=== PATIENT | male | born 1995 | race Caucasian/White ===

== ENCOUNTER 2020-06-14 09:51 | Emergency (ER) | payer BC, OTHER ==
[2020-06-14 09:56] VITALS: TEMP 97.6
--- NOTE | 2020-06-14 11:01 | XR ---
EXAMINATION TYPE: XR chest 2V DATE OF EXAM: 06/14/2020 COMPARISON: 11/25/2014 HISTORY: 25-year-old male with chest pain for months. TECHNIQUE: PA and lateral views FINDINGS: The cardiomediastinal silhouette, aorta, and pulmonary vasculature are within normal limits. library monitor located overlying the mid sternal region. Lungs and pleural spaces are clear. IMPRESSION: No acute cardiopulmonary process.
--- NOTE | 2020-06-14 11:07 | ED ---
Chest Pain HPI - General Chief Complaint: Chest Pain Stated Complaint: chest pain/dizziness Time Seen by Provider: 06/14/20 10:00 Source: patient Mode of arrival: ambulatory Limitations: no limitations - History of Present Illness Initial Comments: 25-year-old male presenting today for chief complaint of chest discomfort on and off 3 months. Patient states that he has had chest discomfort on and off he states is very sporadic and no particular pattern he denies chest pain with exertion he denies chest pressure jaw pain and arm pain nausea vomiting. Patient denies a family history of premature coronary artery syndrome-mother's bedside who confirms this. Patient denies diabetes high blood pressure. He states that today he had 3 episodes of that he states is very intermittent and lasting for seconds at a time he states he had a heart monitor placed the other day by his primary care provider since he did press the button in order to record the event. She denies any leg swelling hemoptysis, pain with deep inspiration history of DVT or pulmonary embolism he denies cancer recent surgeries or immobilization he denies any recent travel. Patient denies current chest pain, denies ripping tearing back pain he denies any shortness of breath. There is no history of connective tissue disease history or To tissue disease personally. Patient denies any additional complaints upon arrival he appears well nontoxic no acute distress EKG was faxed over which looked like normal sinus with a sinus arrythmia. Reviewed with Dr. Villavicencio - Related Data Previous Rx's Medication Instructions Recorded Ibuprofen [Motrin] 600 mg PO Q6HR PRN #40 day 11/25/14 Allergies Allergy/AdvReac Type Severity Reaction Status Date / Time No Known Allergies Allergy Verified 06/14/20 09:56 Review of Systems ROS Statement: Those systems with pertinent positive or pertinent negative responses have been documented in the HPI. ROS Other: All systems not noted in ROS Statement are negative. EKG Findings - EKG Comments: EKG Findings:: Ventricular rate 80 bpm, FL interval 156 ms, QRS duration 104 ms, QT/QTC 358/433 ms. This is normal sinus there is no ST elevation or depression appreciated. Past Medical History Past Medical History: No Reported History History of Any Multi-Drug Resistant Organisms: None Reported Additional Past Surgical History / Comment(s): cyst removal on chest x 2 years ago Past Psychological History: No Psychological Hx Reported Smoking Status: Never smoker Past Alcohol Use History: None Reported Past Drug Use History: None Reported General Exam - General Exam Comments Initial Comments: General: The patient is awake and alert, in no distress Eye: +3 mm pupils are equal, round and reactive to light, extra-ocular movements are intact. No nystagmus. There is normal conjunctiva bilaterally. No signs of icterus. Ears, nose, mouth and throat: There are moist mucous membranes and no oral lesions. Neck: The neck is supple, there is no tenderness or JVD. Cardiovascular: There is a regular rate and rhythm. No murmur, rub or gallop is appreciated. Respiratory: Lungs are clear to auscultation, respirations are non-labored, breath sounds are equal. No wheezes, stridor, rales, or rhonchi. Gastrointestinal: Soft, non-distended, non-tender abdomen without masses or organomegaly noted. There is no rebound or guarding present. Musculoskeletal: Normal ROM, no tenderness. Strength 5/5. Sensation intact. Radial and DP pulses equal bilaterally 2+. Neurological: A&O x 3. CN II-XII intact grossly, There are no obvious motor or sensory deficits. Coordination appears grossly intact. Speech is normal. Skin: Skin is warm and dry and no rashes or lesions are noted. No LE edema or calf pain. Psychiatric: Cooperative, appropriate mood & affect, normal judgment. Limitations: no limitations Course Vital Signs 06/14/20 09:53 Temperature 97.6 F Pulse Rate 86 Respiratory 20 Rate Blood Pressure 137/90 O2 Sat by Pulse 100 Oximetry Chest Pain MDM - MDM Well appearing 25yo male presenting for intermittent hest pain, sharp in nature x [address] EKG no acute changes. No murmur. no extremity findings. PERC (-). Patient hx provided doesnt appears cardiac in nature/typical chest pain. Discussd with attending at this time given CXR clear. no extremity findings. EKG WNL. no murmur that patient is stable for discharge with pcp f/u. reutrn for more persistent/increase fequency of symptoms/worsening pain, Disposition Clinical Impression: Chest pain Disposition: HOME SELF-CARE Condition: Good Instructions (If sedation given, give patient instructions): Chest Pain (ED) Additional Instructions: Please use medication as discussed. Please follow-up with family doctor in the next 2 days. Please return to emergency room if the symptoms increase or worsen or for any other concerns. Is patient prescribed a controlled substance at d/c from ED?: No Referrals: Eric Cook MD [Primary Care Provider] - 1-2 days Time of Disposition: 11:07
[2020-06-14 12:25] VITALS: BP 136/76; PULSE 87; RESP 16
== END 2020-06-14 12:23 | disposition home or self-care (01) ==
LOC: EC 09:51
DX: R07.89 Other chest pain (principal); R42 Dizziness and giddiness
CPT/HCPCS: 71046; 93005; 99285